=== PATIENT | female | born 1990 | race Caucasian/White ===

== ENCOUNTER 2018-05-28 12:25 | Inpatient (IN) | payer OTHER ==
[2018-05-28] MEDS ORDERED: DINOPROSTONE 10 MG VAGINAL SUPPOSITORY VG ONE (13:05)
[2018-05-28] MEDS ORDERED: PROMETHAZINE HCL 25 MG/1 ML VIAL IVPUSH ONE (13:20)
[2018-05-28] MEDS ORDERED: BUTORPHANOL TARTRATE 1 MG/ML VIAL IVPB ONE (13:20)
[2018-05-28 13:46] VITALS: BMI 29.2
[2018-05-28 13:58] LABS: INR 0.88 (0.83-1.09)
[2018-05-28 13:59] LABS: ANION GAP 9 MMOL/L (8-16); BLOOD UREA NITROGEN 10 mg/dL (7-18); CALCIUM 7.9 mg/dL (8.5-10.1); CHLORIDE 107 mmol/L (98-107); CO2 24 mmol/L (21-32); GLUCOSE,RANDOM 69 mg/dL (74-106); POTASSIUM 4.3 mmol/L (3.5-5.1); SODIUM 140 mmol/L (136-145)
[2018-05-28 14:01] LABS: ACTIVATED PTT 32.8 SECONDS (25.2-36.5)
[2018-05-28 14:02] LABS: CREATININE 0.5 mg/dL (0.55-1.02)
--- NOTE | 2018-05-28 14:11 | HP ---
Past Medical History - Primary Care Physician PCP:: Prudence Sharma - Admission Chief Complaint: 27 yrs , 37.6 weeks iup admitted due to SROM since 6.00AM. no c/o labor pain or cramps History of Present Illness: PNC at [address] [place] [address] .wt gain 16 lbs sonogram serial for growth were done , early sono on 12/26/17 --16.0 weeks, EDC06/12/18 05/07/18 sono 34.6 weeks , alvaro 12.8, efw 6'13"( 61%tile) : NT screen neg Sequential screen done panel : 11/15/17 O pos, Rpr nr, Hiv neg, Hbsag neg, Rubella pos, Lead neg, CF screen neg, Sickle neg , pap gc/ct neg. 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 Weeks Gestation by Dates: 37.6 ...EDC by Dates: 06/12/18 ...EDC by Sono: 06/12/18 Heme/Onc: No: Anemia Infectious Disease: Yes: Tuberculosis (pos ppd , chest xray neg 05/23/18). No: AIDS, HIV, STD's Psych: Yes: Other (no h/o mental illness) Endocrine: No: Diabetes Mellitus, Hyperparathyroidism, Hyperthyroidism, Hypothyroidism - Past Surgical History Past Surgical History: Yes: None Hx Myomectomy: No Hx Transabdominal Cerclage: No - Smoking History Smoking history: Never smoked Have you smoked in the past 12 months: No - Alcohol/Substance Use Hx Alcohol Use: No History of Substance Use: reports: None Home Medications - Allergies Allergies/Adverse Reactions: Allergies Allergy/AdvReac Type Severity Reaction Status Date / Time No Known Allergies Allergy Verified 05/28/18 13:20 - Home Medications Home Medications: Ambulatory Orders Ferrous Sulfate 325 mg PO DAILY 05/28/18 Pnv No.95/Ferrous Fum/Folic AC [ Vitamin Tablet] 1 each PO DAILY Physical Exam - Maternity Vital Signs: Vital Signs Temperature 98.2 F 05/28/18 13:00 Pulse Rate 75 05/28/18 13:00 Respiratory Rate 18 05/28/18 13:00 Blood Pressure 130/75 05/28/18 13:00 O2 Sat by Pulse Oximetry (%) Selected Entries 05/28/18 13:23 Weight 170 lb Constitutional: Yes: Well Nourished, Calm, Obese Eyes: Yes: WNL HENT: Yes: WNL, Atraumatic, Normocephalic Neck: Yes: WNL Cardiovascular: Yes: WNL, Regular Rate and Rhythm Lungs: Clear to auscultation Breast(s): Yes: WNL - Abdominal Exam/OB Fundal Height: 40 Number of Fetuses: Single Presentation: Vertex Contractions: No Monitor Mode: External Heart Rate (range): 150 Heart Rate Location: [facility] Category: I Accelerations: Uniform Decelerations: None - Vaginal Exam/OB Vaginal Bleediing: No Speculum Exam: Yes (gross leaking ) Dilatation (cm): 2 Effacement (%): 70 Amniotic Membrane Status: Ruptured Nitrazine Test: Positive Amniotic Fluid: Yes: Clear Presentation: Vertex/Position Station: -3 - Physical Exam Musculoskeletal: Yes: WNL Extremities: Yes: WNL Edema: LLE: 1+, RLE: 1+ Integumentary: Yes: WNL Deep Tendon Reflex Grade: Normal +2 ...Motor Strength: WNL Psychiatric: Yes: WNL, Alert, Oriented - Labs Lab Results: CBC, BMP 05/28/18 13:20 Laboratory Tests 05/28/18 05/28/18 05/28/18 13:20 13:20 13:20 WBC 6.4 Hgb 12.0 Hct 35.0 MCV 92.1 Plt Count 211 Neutrophils % 60.8 Lymphocytes % 27.7 Monocytes % 10.2 Eosinophils % 0.8 Basophils % 0.5 PT with INR 10.00 INR 0.88 PTT (Actin FS) 32.8 RPR Titer Nonreactive Blood Type Antibody Screen 05/28/18 13:20 WBC Hgb Hct MCV Plt Count Neutrophils % Lymphocytes % Monocytes % Eosinophils % Basophils % PT with INR INR PTT (Actin FS) RPR Titer Blood Type O POSITIVE Antibody Screen Negative Problem List - Problems (1) with 37 weeks completed gestation Code(s): Z3A.37 - 37 WEEKS GESTATION OF (2) SROM (spontaneous rupture of membranes) Code(s): EZP7409 - (3) Encounter for induction of labor Code(s): Z34.90 - ENCNTR FOR SUPRVSN OF NORMAL , UNSP, UNSP TRIMESTER Assessment/Plan 27 yrs , 37.6 weeks , SROM , , gbs neg Plan ; cervidil induction of labor ( inserted ay 1.05PM ) Trial of vaginal delivery stadol + phenrgan & or epidural for labor analgesia
[2018-05-28 14:15] LABS: BASO % 0.5 % (0-2.0); EOS % 0.8 % (0-4.5); LYMPH % 27.7 % (8-40); MCH 31.5 pg (25.7-33.7); MCHC 34.2 g/dl (32.0-36.0); MEAN CELL VOLUME 92.1 fl (80-96); MEAN PLT VOLUME 9.8 fl (7.5-11.1); MONO % 10.2 % (3.8-10.2); NEUT % 60.8 % (42.8-82.8); PLATELET COUNT 211 K/MM3 (134-434); RDW 14.1 % (11.6-15.6); WHITE BLOOD COUNT 6.4 K/mm3 (4.0-10.0)
[2018-05-28] MEDS: DEXTROSE 5%-LACTATED RINGERS 1,000 ML IV SCH ×2 (15:00→18:25)
--- NOTE | 2018-05-28 19:07 | PN ---
Progress Note (short form) - Note Progress Note: pt stated cervidil fell in toilet bowl at 6.55PM pelvic exam : 2-3 cm/70%/MR/Vx -3/-2 /Pelvis adequate uc q 3-5 min , mild, FHR 150 bpm cat-1 Selected Entries 05/28/18 18:00 Temperature 98.6 F Pulse Rate 75 Blood Pressure 130/71 Plan : fleets enema may shower Pitocin augmentation Problem List - Problems (1) with 37 weeks completed gestation Code(s): Z3A.37 - 37 WEEKS GESTATION OF (2) SROM (spontaneous rupture of membranes) Code(s): LWQ3401 - (3) Encounter for induction of labor Code(s): Z34.90 - ENCNTR FOR SUPRVSN OF NORMAL , UNSP, UNSP TRIMESTER
[2018-05-28] MEDS ORDERED: SODIUM PHOSPHATE/NA BIPHOS 133 ML ENEMA PR ONE ×2 (20:00→23:59)
[2018-05-28] MEDS ORDERED: OXYTOCIN 30 UNITS in 0.9% NS 30 UNIT/500 ML INFUS.BAG IVPB SCH (20:00)
[2018-05-28] MEDS ORDERED: OXYTOCIN 20 UNITS in 0.9% NS 20 UNIT/1,000 ML INFUS.BAG IV ONE (21:46)
[2018-05-28] MEDS ORDERED: BENZOCAINE 28 GM HEMORRHOIDAL OINTMENT TP PRN (21:55)
[2018-05-28] MEDS ORDERED: METHYLERGONOVINE MALEATE 0.2 MG/1 ML AMP IM PRN (21:55)
[2018-05-28] MEDS ORDERED: oxyCODONE HCL 5 MG TABLET PO PRN (21:55)
[2018-05-28] MEDS ORDERED: BENZOCAINE 20% 57 GM BOTTLE TP PRN (21:55)
[2018-05-28] MEDS ORDERED: WITCH HAZEL 50% (TUCKS) 40 PAD/JAR PAD TP PRN (21:55)
[2018-05-28] MEDS ORDERED: IBUPROFEN 600 MG TABLET (FP) PO PRN (21:55)
[2018-05-28] MEDS ORDERED: ACETAMINOPHEN 325 MG TABLET (FP) PO PRN (21:55)
[2018-05-28] MEDS ORDERED: BISACODYL 10 MG SUPP.RECT RC PRN (21:55)
--- NOTE | 2018-05-28 22:07 | PN ---
Delivery - Delivery Vaginal Delivery: No Problems, Spontaneous (baby delievered in Segundo position , cord around neck x1,untangled before delivery of shoulder , immediate oral & nasal suction was done .Intact perineum. cord blood collected, placenta & membranes completely removed .) EBL (cc): 200 Delivery, Single - Stages of Labor Date 1st Stage Initiatied: 05/28/18 Time 1st Stage Initiated: 14:00 Date 2nd Stage Initiated: 05/28/18 Time 2nd Stage Initiated: 21:35 Date of Delivery: 05/28/18 Time of Delivery: 21:42 Date Placenta Delivered: 05/28/18 Time Placenta Delivered: 21:48 Placenta: Yes: Spontaneous, Uterine Exploration - Condition of Data Entry Coordinator/Physiology Teacher Present: No Gender: Female Weight: 6 lb 8 oz Position: OA (cord around neckx1) Total Hours ROM (Hrs/Mins): 15hrs 48 min - 1 Minute Total Score: 9 5 Minutes Total Score: 9 - Feeding Plan Initial Plan: Elected not to breastfeed exclusively throughout hospitalization Remarks - Remarks Remarks: 27 yrs , 37.6 weeks iup, presented with SROM , GBS neg pnc at 2, [facility] cervidil inserted, fell out approx after 6hrs , fleets enema & shower taken pitocin augmentation started . Intrapartum course uneventful
[2018-05-28] MEDS ORDERED: OXYTOCIN 20 UNITS in 0.9% NS 20 UNIT/1,000 ML INFUS.BAG IV SCH (22:15)
--- NOTE | 2018-05-29 06:14 | PN ---
Post Progress Note - Subjective Subjective: no complains Post Day: 1 Type of Delivery: Vital Signs: Vital Signs Temperature 98.5 F 05/28/18 23:25 Pulse Rate 68 05/28/18 23:25 Respiratory Rate 20 05/28/18 23:25 Blood Pressure 135/80 05/28/18 23:25 O2 Sat by Pulse Oximetry (%) 100 05/28/18 21:45 Breast Exam: Yes: Soft, Other (bf). No: Engorged Uterus: Yes: Fundus Firm, Fundus below umbilicus, Non-tender Lochia: Yes: Rubra Lochia, amount: Moderate Extremities: Yes: Calves non-tender Perineum: Yes: Intact Activity: Ambulating - Labs Labs: CBC WBC 6.4 K/mm3 (4.0-10.0) 05/28/18 13:20 RBC 3.80 M/mm3 (3.60-5.2) 05/28/18 13:20 Hgb 12.0 GM/dL (10.7-15.3) 05/28/18 13:20 Hct 35.0 % (32.4-45.2) 05/28/18 13:20 MCV 92.1 fl (80-96) 05/28/18 13:20 MCH 31.5 pg (25.7-33.7) 05/28/18 13:20 MCHC 34.2 g/dl (32.0-36.0) 05/28/18 13:20 RDW 14.1 % (11.6-15.6) 05/28/18 13:20 Plt Count 211 K/MM3 (134-434) 05/28/18 13:20 MPV 9.8 fl (7.5-11.1) 05/28/18 13:20 Absolute Neuts (auto) 3.9 K/mm3 (1.5-8.0) 05/28/18 13:20 Neutrophils % 60.8 % (42.8-82.8) 05/28/18 13:20 Lymphocytes % 27.7 % (8-40) 05/28/18 13:20 Monocytes % 10.2 % (3.8-10.2) 05/28/18 13:20 Eosinophils % 0.8 % (0-4.5) 05/28/18 13:20 Basophils % 0.5 % (0-2.0) 05/28/18 13:20 Nucleated RBC % 0 % (0-0) 05/28/18 13:20 Problem List - Problems (1) with 37 weeks completed gestation Code(s): Z3A.37 - 37 WEEKS GESTATION OF (2) SROM (spontaneous rupture of membranes) Code(s): IPA4361 - (3) Encounter for induction of labor Code(s): Z34.90 - ENCNTR FOR SUPRVSN OF NORMAL , UNSP, UNSP TRIMESTER (4) Vaginal delivery Code(s): O80 - ENCOUNTER FOR FULL-TERM UNCOMPLICATED DELIVERY (5) Encounter for visit Code(s): Z39.2 - ENCOUNTER FOR ROUTINE FOLLOW-UP Assessment/Plan stable. plan cbc today discharge tomorrow.
[2018-05-29 07:28] LABS: BASO % 0.4 % (0-2.0); EOS % 0.1 % (0-4.5); HEMATOCRIT 35.7 % (32.4-45.2); LYMPH % 13.1 % (8-40); MCH 30.7 pg (25.7-33.7); MCHC 33.6 g/dl (32.0-36.0); MEAN CELL VOLUME 91.4 fl (80-96); MEAN PLT VOLUME 9.3 fl (7.5-11.1); MONO % 7.1 % (3.8-10.2); NEUT % 79.3 % (42.8-82.8); PLATELET COUNT 180 K/MM3 (134-434); RBC 3.91 M/mm3 (3.60-5.2); RDW 14.2 % (11.6-15.6); WHITE BLOOD COUNT 12.6 K/mm3 (4.0-10.0)
[2018-05-29] MEDS: FERROUS SO4 325 MG TABLET (FP) PO SCH ×2 (08:04→17:00)
[2018-05-29] MEDS: PRENATAL VITAMINS W/ FOLIC ACID TABLET (FP) PO SCH (09:01)
[2018-05-29] MEDS ORDERED: SENNOSIDES/DOCUSATE COMBO (SENNA PLUS) TABLET (UD) PO PRN (22:00)
--- NOTE | 2018-05-30 07:41 | DS ---
Physical Exam-PRINCIPAL DATA ARCHITECT Vital Signs: Vital Signs Temperature 98.2 F 05/29/18 21:03 Pulse Rate 72 05/29/18 21:03 Respiratory Rate 18 05/29/18 21:03 Blood Pressure 126/76 05/29/18 21:03 O2 Sat by Pulse Oximetry (%) 100 05/28/18 21:45 Constitutional: Yes: Well Nourished Eyes: Yes: WNL HENT: Yes: WNL Neck: Yes: WNL Cardiovascular: Yes: WNL, Regular Rate and Rhythm Respiratory: Yes: WNL, CTA Bilaterally Gastrointestinal: Yes: WNL, Normal Bowel Sounds ...Rectal Exam: Yes: WNL ....Post : Yes: Uterus firm, Uterus non-tender, Moderate lochia rubra ( perineum intact) Breast(s): Yes: WNL (not engorged , BF) Edema: No Integumentary: Yes: WNL Neurological: Yes: WNL ...Motor Strength: WNL Psychiatric: Yes: WNL, Alert, Oriented Labs: CBC, BMP 05/29/18 06:00 05/28/18 13:20 Delivery - Delivery Vaginal Delivery: No Problems, Spontaneous (baby delievered in Segundo position , cord around neck x1,untangled before delivery of shoulder , immediate oral & nasal suction was done .Intact perineum. cord blood collected, placenta & membranes completely removed .) Type of Anesthesia: None Episiotomy/Laceration: None EBL (cc): 200 Delivery, Single - Stages of Labor Date 1st Stage Initiatied: 05/28/18 Time 1st Stage Initiated: 14:00 Date 2nd Stage Initiated: 05/28/18 Time 2nd Stage Initiated: 21:35 Date of Delivery: 05/28/18 Time of Delivery: 21:42 Time Placenta Delivered: 21:48 Placenta: Yes: Spontaneous, Uterine Exploration - Condition of Bill Sorter/Kennel Manager Dog Track Present: No Infant Gender: Female Weight: 6 lb 8 oz Position: OA (cord around neckx1) Total Hours ROM (Hrs/Mins): 15hrs 48 min - 1 Minute Total Score: 9 5 Minutes Total Score: 9 - [place] Feeding Plan Initial Plan: Elected not to breastfeed exclusively throughout hospitalization Remarks - Remarks Remarks: 27 yrs , 37.6 weeks iup, presented with SROM , GBS neg pnc at 2, [facility] cervidil inserted, fell out approx after 6hrs , fleets enema & shower taken pitocin augmentation started . Intrapartum course uneventful . post course unevebtful discharge today Discharge Summary Reason For Visit: ADMIT RUPTURE OF MEMBRANES Current Active Problems Encounter for induction of labor (Acute) Encounter for visit (Acute) with 37 weeks completed gestation (Acute) SROM (spontaneous rupture of membranes) (Acute) Vaginal delivery (Acute) Condition: Stable - Instructions Diet, Activity, Other Instructions: Post Instructions DIET: Continue good diet high in protein, calcium, and iron rich foods. Drink at least eight (8) glasses of water daily in addition to other fluids. ___ Regular diet MEDICATIONS: Continue vitamins and iron as previously directed. Motrin and Tylenol may be taken for minor discomfort. ACTIVITY: Mild to moderate exercise may be started in two (2) weeks. Take frequent rest periods. Resume normal activity after six (6) week check up. WOUND CARE OF OPERATIVE SITE: Continue use of perineal bottle until vaginal discharge stops. Keep area clean. Shower daily. Keep abdominal wound dry. Report any drainage or redness to physician. Tub baths, tampons and douches are not permitted for [address] Breast feeding & or _ Bottle feeding BREAST CARE: (For those that are not breast feeding): If engorgement occurs: Wear tight fitting bra. Take Tylenol or Motrin for pain. Apply cold packs (ice in bags to each breast ) FAMILY PLANNING: There are many control alternatives to pursue and they should be discussed at your first office visit. You may resume sexual activity after your six (6) week check up. (Remember, breast feeding is not a contraceptive) NEXT PHYSICIAN APPOINTMENT: Be certain to call for a six (6) week appointment, unless otherwise directed. Call Clinic or got to Emergency Dept if you have any of the following: Heavy vaginal bleeding Painful urination Leg pain Unusual odor noted to vaginal bleeding High fever Red streaking noted on breast Referrals: Prudence Sharma MD [Staff Physician] - Disposition: HOME - Home Medications Comprehensive Discharge Medication List: Ambulatory Orders Pnv No.95/Ferrous Fum/Folic AC [ Vitamin Tablet] 1 each PO DAILY Acetaminophen [Tylenol .Regular Strength -] 650 mg PO Q3H PRN tablet 05/29/18 Ibuprofen [Motrin -] 200 mg PO Q4H PRN tablet 05/29/18 Vitamins (Sjr) - 1 tab PO DAILY tablet 05/29/18
[2018-05-30] MEDS: FERROUS SO4 325 MG TABLET (FP) PO SCH (08:13)
[2018-05-30 08:38] VITALS: BP 112/67; PULSE 68; TEMP 98
[2018-05-30] MEDS: PRENATAL VITAMINS W/ FOLIC ACID TABLET (FP) PO SCH (09:11)
== END 2018-05-30 11:20 | disposition home or self-care (01) | DRG 560 ==
LOC: JDEL 12:25 → JLDR 13:00 → J3W 23:22
PROVIDERS: ADMIT Obstetrics & Gynecology; ATTEND Obstetrics & Gynecology
PROC: 10E0XZZ Delivery of Products of Conception, External Approach (ICD-10-PCS; principal; 2018-05-28)
DX: O69.81X0 Labor and delivery complicated by cord around neck, without compression, not applicable or unspecified (principal); Z3A.37 37 weeks gestation of pregnancy; Z37.0 Single live birth
CPT/HCPCS: 36415; 59409; 80048; 85025; 85610; 85730; 86593; 86850; 86900; 86901